=== PATIENT | female | born 1960 | race Asian ===

== ENCOUNTER → 2023-07-17 | Day surgery (SDC) | payer MEDICAID ==
[~2023-07-17] VITALS: Ht 154.9 cm; Wt 59.0 kg
[~2023-07-17] MED LIST: BALANCED SALT IRRIG SOLN COMB1 500ML OP NR; FENTANYL CITRATE/PF 50MCG/ML 2ML VIAL ONE; GLYB-168 PO; HYALURONATE SODIUM 10 MG/ML 0.55ML SYRINGE IO ONE; KETOROLAC 30MG/ML VIAL ONE; MIDAZOLAM HCL 2 MG/2 ML VIAL ONE; PHENYLEPHRINE HCL 10% OPHTH DROPS 5ML RIGHTEYE ONE; PHENYLEPHRINE/CYCLOPENT 0.2-1% OPHTH DROPS 2ML RIGHTEYE ONE; PIOG45TA5 PO; SITA100T11 PO; TROPICAMIDE 1% OPHTH DROPS 15ML RIGHTEYE ONE; TRYPAN BLUE 0.5 ML DISP.SYRIN IO ONE
[2023-07-17] MEDS: SODIUM CHLORIDE 0.9% 1,000 ML IV SCH (07:13)
== END | disposition home or self-care (01) ==
LOC: OR 05:30
PROVIDERS: ATTEND Ophthalmology
DX: E11.36 Type 2 diabetes mellitus with diabetic cataract (principal); H25.89 Other age-related cataract; E78.00 Pure hypercholesterolemia, unspecified; Z79.899 Other long term (current) drug therapy; Z98.890 Other specified postprocedural states
CPT/HCPCS: 66984; 82962; 93005; J3010; J1885; J2250; J3490; V2632; Q9957